=== PATIENT | male | born 1975 | race Caucasian/White ===

== ENCOUNTER 2017-07-28 17:37 | Emergency (ER) | payer OTHER ==
[~2017-07-28] VITALS: Ht 180.3 cm; Wt 139.7 kg
[~2017-07-28 17:37] MED LIST: ASPIRIN81 M2 PO; CHANTIX PO; CHANTIX1 MG PO; DOLOPHINE HCL5 MG; DOLOPHINE HCL5 MG PO; Ecotrin PO; HYDROCHLOROTH12.5 M3 PO; NOHOMEMEDS
[2017-07-28 18:24] LABS: HEMATOCRIT 43.2 % (38.0-50.0); MCH 30.4 PG (29.0-34.0); MCV 87.1 FL (86-99); MEAN PLAT.VOLUME 9.8 uM^3 (9.0-12.4); PLATELET COUNT 243 K/uL (156-360); RBC DIS.WIDTH-CV 12.4 % (11.8-14.6); RBC DIS.WIDTH-SD 39.5 % (39-53); RED BLOOD COUNT 4.96 M/uL (4.00-5.50)
[2017-07-28 18:34] LABS: CHLORIDE 103 mEq/L (99-109); SODIUM 139 mEq/L (136-147)
[2017-07-28 18:35] LABS: GLUCOSE 95 mg/dL (70-99)
[2017-07-28 18:37] LABS: ANION GAP 14 MEQ/L (2-14)
[2017-07-28 18:39] LABS: GFR ESTIMATE (CALCULATED) > 59 mL/min/ (58.99-99999)
[2017-07-28 18:40] LABS: UREA NITROGEN (BUN) 12 mg/dL (9-23)
[2017-07-28 18:44] LABS: TROP-I INTERPRETATION NEGATIVE; TROPONIN-I < 0.01 ng/mL (0.0-0.30)
[2017-07-28 20:57] LABS: D-DIMER ELISA < 150.00 ng/mLDDU (<230)
[2017-07-28] MEDS ORDERED: MOTRIN600 MG PO (21:44)
[2017-07-28 22:05] VITALS: BP 158/90
== END 2017-07-28 22:05 | disposition home or self-care (01) ==
LOC: EME 17:37
PROVIDERS: Physician Assistant
DX: R07.89 Other chest pain (principal); R09.1 Pleurisy; M54.9 Dorsalgia, unspecified; I10 Essential (primary) hypertension; Z79.82 Long term (current) use of aspirin; F17.210 Nicotine dependence, cigarettes, uncomplicated
CPT/HCPCS: 71020; 80048; 84484; 85027; 85379; 93005; 99281; 99285; J1885